=== PATIENT | female | born 2000 | race Caucasian/White ===

== ENCOUNTER 2019-11-07 10:43 | Outpatient (CLI) | payer OTHER | END 2019-11-07 11:00 | disposition home or self-care (01) | LOC: SONOGRAMA 10:43 | DX: N60.11 Diffuse cystic mastopathy of right breast (principal); N60.12 Diffuse cystic mastopathy of left breast ==

== ENCOUNTER → 2020-05-28 | Outpatient (CLI) | payer OTHER | END | disposition home or self-care (01) | LOC: MAMO-SONO 10:15 → SONOGRAMA 10:40 | PROVIDERS: ATTEND Obstetrics & Gynecology | DX: N60.11 Diffuse cystic mastopathy of right breast (principal); N60.12 Diffuse cystic mastopathy of left breast ==

== ENCOUNTER 2020-09-05 10:04 | Outpatient (CLI) | payer OTHER | END 2020-09-05 10:15 | disposition home or self-care (01) | LOC: SONOGRAMA 10:04 | DX: Q51.818 Other congenital malformations of uterus (principal); N92.5 Other specified irregular menstruation ==